=== PATIENT | female | born 1990 | race Caucasian/White ===

== ENCOUNTER 2016-11-20 15:01 | Emergency (ER) | payer SELFPAY ==
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
[~2016-11-20 15:01] MED LIST: CLARITIN10 MG; SUDAFED
== END 2016-11-20 16:08 | disposition home or self-care (01) ==
LOC: CFTX 15:01
DX: S16.1XXA Strain of muscle, fascia and tendon at neck level, initial encounter (principal); V43.52XA Car driver injured in collision with other type car in traffic accident, initial encounter; Y92.410 Unspecified street and highway as the place of occurrence of the external cause
CPT/HCPCS: 72040; 96372; 99283; J1885